=== PATIENT | female | born 1995 | race Caucasian/White ===

== ENCOUNTER 2021-06-08 19:25 | Emergency (ER) | payer OTHER, SELFPAY ==
[2021-06-08 19:39] VITALS: BP 108/64; PULSE 65; RESP 18; TEMP 37.5; O2SAT 94
== END 2021-06-09 02:31 | disposition left against medical advice (07) ==
LOC: ANHED 22:10
DX: Z53.21 Procedure and treatment not carried out due to patient leaving prior to being seen by health care provider (principal)
CPT/HCPCS: 99199

== ENCOUNTER 2023-05-19 10:49 | Emergency (ER) | payer OTHER, MEDICAID, SELFPAY ==
--- NOTE | ~2023-05-19 | US_ITS ---
EXAMINATION: US OB <=14 wk fetus w TV DATE: 05/19/2023 14:51 INDICATION: Vaginal bleeding during first trimester TECHNIQUE: Real-time pelvic ultrasound utilizing both a transvaginal and transabdominal probe was pe rformed. The interpreting radiologist was not present for the study. COMPARISON: None. FINDINGS: The uterus measures 9.2 x 4.4 x 5.4 cm. There is an intrauterine gestational sac. A yolk sac is iden tified. There is asymmetric thickening of the wall of one side of the sac which likely represents a d eveloping pole which is too small to delineate the margins for measurement. No discernible feta l heart motion was noted by the watershed tender or evident on the cine images. The mean sac diameter lenora ures 7-8 cm, which correlates with an estimated gestational age of 5 weeks and 3 days. The right ovary measures 3.5 x 2.1 x 1.8 cm. The left ovary measures 4.3 x 2.2 x 1.9 cm. There are a few subcentimeter follicles evident at both ovaries along with normal vascular flow on color Doppler. There is no free fluid in the pelvis. IMPRESSION: 1. Single intrauterine gestational sac with yolk sac and likely tiny developing pole which perez ins too small for accurate measurement and with no discernible heart motion likely due to early stage of . Consider short interval follow-up in a week or two to assess for viability and m ore accurate estimated gestational age based on crown-rump length. 2. Gestational age by ultrasound based on mean sac diameter of 5 weeks 3 day(s) +/- 3 day(s) with ul trasound estimated date of delivery ([facility]) of 01/16/2024. Reviewed, dictated and finalized at location A. CURER IMPRESSION: 1. Single intrauterine gestational sac with yolk sac and likely tiny developing pole which remains too small for accurate measurement and with no discer nible heart motion likely due to early stage of . Consider short interval follow-up in a week or two to assess for viability and more accurate estimated gestational age based on crown-rump length. 2. Gestational age by ultrasound based on mean sac diameter of 5 weeks 3 day(s ) +/- 3 day(s) with ultrasound estimated date of delivery ([facility]DE[facility]) of 01/16/2024.
[2023-05-19 11:00] VITALS: BP 103/42; PULSE 87; RESP 16; TEMP 36.6; O2SAT 100
[2023-05-19 11:44] LABS: Basophils Absolute Auto 0.1 K/mm3 (0.0-0.1); Basophils Percent Auto 0.8 % (0.2-1.2); Eosinophils Absolute Auto 0.6 K/mm3 (0-0.3); Eosinophils Percent Auto 5.4 % (0-4.4); Hematocrit 38.9 % (37.0-47.0); Hemoglobin 12.6 g/dL (12.0-15.0); Immature Granulocyte Absolute 0.05 K/mm3 (0.00-0.031); Immature Granulocyte Percent A 0.4 % (0-0.5); Lymphocytes Absolute Auto 3.05 K/mm3 (0.9-3.2); Lymphocytes Percent Auto 25.9 % (18.3-44.2); Mean Corpuscular HGB Conc 32.4 g/dl (32-36); Mean Corpuscular Hemoglobin 31.2 pg (26-34); Mean Corpuscular Volume 96.3 fl (80-100); Mean Platelet Volume 9.9 fl (7.4-10.4); Monocytes Absolute Auto 0.7 K/mm3 (0.1-0.6); Monocytes Percent Auto 6.1 % (2.6-8.5); Neutrophils Absolute Auto 7.2 K/mm3 (1.3-6.7); Neutrophils Percent Auto 61.4 % (45.5-73.1); Platelet Count Result 236 k/mm3 (150-375); Red Blood Count 4.04 M/mm3 (4.2-5.4); Red Cell Distribution Width 11.3 % (11.5-14.5); White Blood Count 11.8 K/mm3 (4.5-10.0)
[2023-05-19 11:47] LABS: Appearance Urine Cloudy (Clear); Bacteria Urine 2+ /hpf; Bilirubin Urine Negative (Negative); Blood Urine 3+ (Negative); Color Urine Dark Yellow (Yellow); Glucose Urine UA Negative (Negative); Ketones Urine Trace mg/dL (Negative); Leukocyte Esterase Ur 1+ LEU/UL (Negative); Nitrate Urine Negative (Negative); Non Pathogenic Casts 0-2; Protein Urine 1+ mg/dL (Negative); Specific Grav Ur 1.035 (1.001-1.035); Squamous Epithelial Cell Urine Few /hpf (Few); pH Urine 5.5 (5.0-9.0)
[2023-05-19 11:52] LABS: Alanine Aminotransferase 13 U/L (6-35); Albumin Level 4.7 g/dL (3.5-5.1); Alkaline Phosphatase 42 U/L (38-126); Anion Gap 11 mmol/L (8-16); Aspartate Amino Transferase 24 U/L (14-36); Bilirubin,Total 0.6 mg/dL (0.2-1.3); Blood Urea Nitrogen 10 mg/dL (7-17); Calcium 9.3 mg/dL (8.4-10.2); Carbon Dioxide 25 mmol/L (22-30); Chloride 105 mmol/L (98-107); Estimated CRCL calculation 90 ml/min; Estimated Glomerular Filt Rate > 60; Glucose 87 mg/dL (65-110); Lipase 61 U/L (23-300); Potassium 3.2 mmol/L (3.4-5.0); Sodium 141 mmol/L (137-145)
[2023-05-19 11:57] LABS: Add Urine Microscopic? YES
--- NOTE | 2023-05-19 15:31 | ED.GENADULT ---
HPI - General Adult General Chief complaint: Abdominal Pain Stated complaint: +PREG TEST PAIN AND SPOTTING Time Seen by Provider: 05/19/23 11:22 History of Present Illness HPI narrative: Patient is a 27-year-old female who presents ER with vaginal spotting. Ongoing over the last 2 to 3 days. She has had a positive test that time. Last known menstrual period was in December 2022. She reports she had a negative test 1 month ago. No fevers or chills or sweats. No abdominal pain. She is scheduled to follow-up with Dr. Del Toro later this week. Related Data Allergies Allergy/AdvReac Type Severity Reaction Status Date / Time No Known Allergies Allergy Mild Unverified 06/08/21 19:42 Review of Systems Review of Systems: All systems reviewed & are unremarkable except as noted in HPI and below Constitutional: Constitutional: Denies chills, Denies fatigue and Denies fever(s) ENT: Denies nasal congestion and Denies sore throat Cardiovascular: Cardiovascular: Reports no additional cardiovascular complaints Respiratory: Respiratory: Reports no additional respiratory complaints Genitourinary: Genitourinary: Reports abnormal vaginal bleeding, Denies nocturia, Denies dysuria and Denies pelvic pain PMFSH Past Medical History Medical History (Updated 05/19/23 @ 15:37 by Henok Powell MD) Healthy female adult Surgical History Surgical History (Updated 05/19/23 @ 15:32 by Henok Powell MD) No history of previous surgery Exam Narrative: GENERAL: Well-appearing, well-nourished, and in no acute distress. HEAD: Normocephalic, atraumatic. ENT: Mucous membranes moist. NECK: Supple. CHEST: Clear to auscultation. No respiratory distress. HEART: Regular rate and rhythm. Normal peripheral pulses. ABDOMEN: Soft, nontender, nondistended. EXTREMITIES: Normal range of motion. No edema. SKIN: Warm, dry, no rash. NEURO: Alert and oriented x3. PSYCH: Normal mood and affect. Course Course Emergency Course: Patient resting comfortably. Informed of results. May follow-up with her OB as previously scheduled. Bleeding precautions given. Vital Signs Vital signs: Vital Signs Temperature 97.8 F 05/19/23 11:00 Pulse Rate 87 05/19/23 11:00 Respiratory Rate 16 05/19/23 11:00 Blood Pressure 103/42 L 05/19/23 11:00 Pulse Oximetry 100 05/19/23 11:00 Oxygen Delivery Room Air 05/19/23 11:00 Temperature 97.8 F 05/19/23 11:00 Pulse Rate 87 05/19/23 11:00 Respiratory Rate 16 05/19/23 11:00 Blood Pressure 103/42 L 05/19/23 11:00 Pulse Oximetry 100 05/19/23 11:00 Oxygen Delivery Room Air 05/19/23 11:00 Medical Decision Making Vital Signs Vital Signs: Vital Signs Temperature 97.8 F 05/19/23 11:00 Pulse Rate 87 05/19/23 11:00 Respiratory Rate 16 05/19/23 11:00 Blood Pressure 103/42 L 05/19/23 11:00 Pulse Oximetry 100 05/19/23 11:00 Oxygen Delivery Room Air 05/19/23 11:00 Temperature 97.8 F 05/19/23 11:00 Pulse Rate 87 05/19/23 11:00 Respiratory Rate 16 05/19/23 11:00 Blood Pressure 103/42 L 05/19/23 11:00 Pulse Oximetry 100 05/19/23 11:00 Oxygen Delivery Room Air 05/19/23 11:00 Lab Data 05/19/23 11:33 05/19/23 11:33 Labs: Lab Results 05/19/23 05/19/23 Range/Units 11:33 12:08 WBC 11.8 H (4.5-10.0) K/mm3 RBC 4.04 L (4.2-5.4) M/mm3 Hgb 12.6 (12.0-15.0) g/dL Hct 38.9 (37.0-47.0) % MCV 96.3 (80-100) fl MCH 31.2 (26-34) pg MCHC 32.4 (32-36) g/dl RDW 11.3 L (11.5-14.5) % Plt Count 236 (150-375) k/mm3 MPV 9.9 (7.4-10.4) fl Immature Gran % (Auto) 0.4 (0-0.5) % Neut % (Auto) 61.4 (45.5-73.1) % Lymph % (Auto) 25.9 (18.3-44.2) % [place] % (Auto) 6.1 (2.6-8.5) % Eos % (Auto) 5.4 H (0-4.4) % Baso % (Auto) 0.8 (0.2-1.2) % Lymph # (Auto) 3.05 (0.9-3.2) K/mm3 [place] # (Auto) 0.7 H (0.1-0.6) K/mm3 Eos # (Auto) 0.6 H
[2023-05-19 15:46] VITALS: BP 101/85; PULSE 76; RESP 18; O2SAT 100
== END 2023-05-19 15:47 | disposition home or self-care (01) ==
PROVIDERS: Emergency Provider Emergency Medicine; PCP Nurse Practitioner Family
DX: O26.851 Spotting complicating pregnancy, first trimester (principal); O26.891 Other specified pregnancy related conditions, first trimester; R82.71 Bacteriuria; Z3A.01 Less than 8 weeks gestation of pregnancy
CPT/HCPCS: 36415; 76801; 76817; 80053; 81001; 81025; 83690; 84702; 85025; 86850; 86900; 86901; 87086; 99284

== ENCOUNTER 2023-05-22 08:38 | Emergency (ER) | payer OTHER, MEDICAID, SELFPAY ==
--- NOTE | ~2023-05-22 | US_ITS ---
EXAMINATION: US OB <= 14 weeks fetus DATE: 05/22/2023 10:04 INDICATION: Vaginal bleeding. TECHNIQUE: Real-time transabdominal and transvaginal pelvic ultrasound was performed. COMPARISON: Ultrasound 05/19/2023 FINDINGS: TRANSABDOMINAL ULTRASOUND: The uterus measures 9.4 x 4.5 x 5.4 cm. TRANSVAGINAL ULTRASOUND: There is no visible intrauterine gestational sac. The endometrial complex me asures 5 mm in thickness. The right ovary measures 2.6 x 1.9 x 2.0 cm. The left ovary measures 2.3 x 2.3 x 2.1 cm. There is physiologic free fluid in the pelvis. IMPRESSION: 1. Spontaneous . No retained products of conception. Reviewed, dictated and finalized at location A. [place] SURGERY DOCTOR
[2023-05-22 08:41] VITALS: BP 107/54; PULSE 72; RESP 18; TEMP 36.4; O2SAT 99
--- NOTE | 2023-05-22 08:46 | ED.PREGNANCY ---
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 She notes she was seen here recently for vaginal bleeding and cramping. She had an ultrasound at that time, was also started on antibiotics for bacturia/UTI. She continues to be on these antibiotics. She states that overnight last night she had worsening cramping that felt similar to prior contractions with her first child. The pain is located throughout her lower abdomen as well as in her lower back. She notes that the bleeding and cramping seem to have significantly decreased since that time. No prior miscarriages. No shortness of breath, light headedness. No vaginal discharge aside from the bleeding. Related Data Allergies Allergy/AdvReac Type Severity Reaction Status Date / Time No Known Allergies Allergy Mild Verified 05/22/23 08:38 Review of Systems Review of Systems: All systems reviewed & are unremarkable except as noted in HPI and below PMFSH Past Medical History Medical History (Updated 05/22/23 @ 11:11 by Caty Montoya MD) Healthy female adult Surgical History Surgical History (Updated 05/19/23 @ 15:32 by Henok Powell MD) No history of previous surgery Exam Narrative: GENERAL: Well-appearing, well-nourished, and in no acute distress. HEAD: Normocephalic, atraumatic. EYES: PERRLA and EOMI. ENT: Nares clear. Mucous membranes moist. NECK: Supple. CHEST: Clear to auscultation. No respiratory distress. HEART: Regular rate and rhythm. Normal peripheral pulses. ABDOMEN: Soft, nontender, nondistended. 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 No edema. SKIN: Warm, dry, no rash. NEURO: No focal deficits. Alert and oriented x3. PSYCH: Normal mood and affect. Course Course Emergency Course: Chart review performed. ED visit here on 05/19/23. They note she was scheduled for follow up with Dr. Del Toro. US at that visit showed single intrauterine gestational sac with yolk sac, estimated gestational age 5w3d. Blood type O positive. Triage note states patient was concerned for miscarriage and believes she may have passed tissue last night. Patient seen and evaluated, in no acute distress. Concerns for possible miscarriage. Will do ultrasound to evaluate for possible retained products as well as pelvic exam to evaluate cervical OS. Tylenol ordered for pain. Patient O positive, will not require rhogam. bHCG has downtrended from 1678 on 05/19/23 to 268 today. Awaiting US. US shows complete without retained products. Patient updated on results. Will defer the pelvic exam at this time given no concern for retained products at this time and improved bleeding. The results of pertinent diagnostic studies and exam findings were discussed. The patient?s provisional diagnosis and plan of care were discussed with the patient and present family. The patient and/or present family expressed understanding of the diagnosis and plan. The nurse was instructed to provide written instructions and appropriate follow-up information. The patient understands their need and responsibility to obtain additional follow-up as instructed. The risks of medications administered and prescribed were discussed with the patient and family present. Vital Signs Vital signs: Vital Signs Temperature 97.6 F 05/22/23 08:41 Pulse Rate 72 05/22/23 08:41 Respiratory Rate 18 05/22/23 08:41 Blood Pressure 107/54 L 05/22/23 08:41 Pulse Oximetry 99 05/22/23 08:41 Oxygen Delivery Room Air 05/22/23 08:41 Temperature 97.6 F 05/22/23 08:41 Pulse Rate 72 05/22/23 08:41 Respiratory Rate 18 05/22/23 08:41 Blood Pressure 107/54 L 05/22/23 08:41 Pulse Oximetry 99 05/22/23 08:41 Oxygen Deli
[2023-05-22] MEDS: ACETAMINOPHEN 500 MG TABLET 1000 MG PO (09:03)
[2023-05-22 11:20] VITALS: BP 106/55; PULSE 72; RESP 16; O2SAT 99
== END 2023-05-22 11:21 | disposition home or self-care (01) ==
PROVIDERS: Emergency Provider Student in an Organized Health Care Education/Training Program; PCP Nurse Practitioner Family
DX: O03.9 Complete or unspecified spontaneous abortion without complication (principal)
CPT/HCPCS: 36415; 76801; 84702; 99284; A9270

== ENCOUNTER 2024-02-26 12:56 | Day surgery (SDC) | payer OTHER, SELFPAY ==
[2024-02-26] VITALS (9 sets, daily range): BP systolic 92–116; BP diastolic 55–77; PULSE 73–103; RESP 16–18; TEMP 36.2–36.3; O2SAT 95–100; BMI 26.6; BMI 26.2
--- NOTE | 2024-02-26 12:11 | PC.NURSE ---
Report to the Outpatient Waiting Room, entrance under the green pavilion located off [facility], at time _1pm_ on date _[id number]_. Planned Procedure Time: _3pm_.? Time changes happen often and if your time is changed the preop area will call you the afternoon before. - You and your visitor will be asked to self-screen and do not enter if you have any COVID symptoms. Please call surgeon if you need to reschedule. - A mask is optional within the hospital at this time. Patients may have clear liquids (water, carbonated beverages, clear teas, apple juice) until 3 hours prior to surgery with a maximum of 20 ounces. - No food from midnight until time of surgery and no smoking Take only the following medications with a SIP of water on the morning of surgery: ___Already took Vraylar and Sertraline this am. DO NOT STOP ANY OF YOUR OTHER PRESCRIPTION MEDICATIONS PRIOR TO SURGERY EXCEPT THE FOLLOWING Medications to discontinue per physician Date to take last dose Please no make-up, nail romansh, hairspray, perfume, deodorant, or body powder the day of surgery.? No jewelry (including any body piercings) or valuables the day of surgery, leave them at home.? Please take a shower or bath the night before, or the morning of, surgery with an antibacterial soap.? Wear comfortable, loose fitting clothing.? - Jewelry must be removed prior to entering the operating room.? Rings and piercings that are not removed may be cut off. - The hospital will not accept responsibility for valuables.? - Please leave all valuables, including medications, at home the day of surgery. If you are going home after surgery, a licensed fuel truck driver must drive you home.? - NO public transportation without another adult if you receive anesthesia. - We recommend that an adult stay with you for 24 hours following discharge. - We also recommend that you do not drive, make important decision, drink alcoholic beverages, or take any drugs that were not prescribed by your health care provider for at least 24 hours after your discharge time. Follow any additional instructions given to you from your surgeon. Telephone instructions given to __Chelenardn__and asked if any additional questions and then verbalized understanding. Patient advised to call surgeon office or pre surgery nurse liaison [phone] if any additional questions.
[2024-02-26] MEDS: ACETAMINOPHEN 500 MG TABLET 1000 MG PO (13:48)
[2024-02-26] MEDS: KETOROLAC 15 MG/ML VIAL (*BKC) IV PUSH (13:48)
--- NOTE | 2024-02-26 13:49 | P.PNAN_ITS ---
Anes - Initial Pre Proc Eval Procedure: Operation Date: 02/26/24 15:00 Proposed Procedures p Diagnostic Laparoscopy for Ectopic - Sonny Marquez MD Date/Time: 02/26/24 13:49 Surgeon: Sonny Marquez MD Pre Op Diagnosis: Ectopic Patient Data Age: 28 Gender: F Height: 1.55 m Weight: 62.9 kg Last Vital Signs Temp 97.2 F L 02/26/24 13:36 Pulse 83 02/26/24 13:36 Resp 16 02/26/24 13:36 BP 102/61 02/26/24 13:36 Pulse Ox 99 02/26/24 13:36 O2 Del Method Room Air 02/26/24 13:36 Allergies Allergy/AdvReac Type Severity Reaction Status Date / Time No Known Allergies Allergy Mild Verified 02/26/24 12:01 Home Medications Medication Instructions Recorded Confirmed Type cariprazine 1.5 mg capsule 1.5 mg PO DAILY 02/26/24 02/26/24 History (Vraylar) sertraline 50 mg tablet 50 mg PO DAILY 02/26/24 02/26/24 History Patient hx anesthesia problems: post op nausea/vomiting Family hx anesthesia problems: none Results Review: All pre-operative results and documents have been reviewed as part of the pre- operative evaluation. FOR[facility]LY [facility] Past Medical History Medical History Healthy female adult Surgical History Surgical History No history of previous surgery Social History Social History Smoking status: Former smoker Tobacco type: e-cigarettes/vaping Alcohol intake: current Substance use: current Substance use type: marijuana Other substance usage details: daily Living arrangements: alone Spiritual care concerns: No Anes - Eval Final PreProcedure Day of Procedure 02/26/24 13:49 Patient weight: normal Heart: regular rate and rhythm Lungs: clear to auscultation Airway: Mallampati scale class II and special considerations (Missing upper teeth R sided and lower R side. ) Neurological: alert and oriented Last oral intake: >/= 8 hours ASA classification: II Emergent: no Anesthetic plan: proceed Anesthesia type and monitoring: general ETT and standard monitoring Results Review: All pre-operative results and documents have been reviewed as part of the pre- operative evaluation. Pt smokes marijuana daily, smoked at 8 am today. Prev vaped cigarettes. Informed Consent: The patient's anesthetic plan and its attendant risks and benefits were discussed with the patient/family/POA. Questions were solicited and answers provided to the satisfaction of the patient/family/POA.
[2024-02-26] MEDS: SCOPOLAMINE 1 MG PATCH 1 PATCH TRANSDERM (13:57)
--- NOTE | 2024-02-26 14:16 | WPDHPUPDATE1 ---
History and Physical Update Update Date/Time: 02/26/24 14:16 History and Physical has been reviewed, including an updated exam of the patient. There are NO changes in the patient's condition. Risks, benefits, and alternatives have been discussed and questions answered. Patient agrees to proceed with procedure.
[2024-02-26] MEDS: LACTATED RINGERS 1,000 ML 30 ML IV CONT ×2 (15:23)
--- NOTE | 2024-02-26 15:23 | W.PM.PROC2 ---
Procedure Note - Detailed Date of Procedure 02/26/24 Pre-op Diagnosis Ectopic Post-op Diagnosis Same (Hemoperitoneum) Procedure Performed laparoscopic treatment of ectopic , Surgeon Sonny Marquez MD Anesthesia General Indications ectopic Findings pelvic adhesions involving both tubes and ovaries, found throughout the posterior cul-de-sac, Adhesions formed pockets that held blood, ruptured ectopic in the ampullary region of the left fallopian tube. Description of Procedure The patient was taken to the operating room. She was prepped and draped in the dorsal lithotomy position after induction general anesthesia. A 5 mm incision was made with a scalpel on the abdominal skin in the left upper quadrant of the abdomen. A 5 mm trocar was inserted into the intra-abdominal cavity under direct visualization the scope. In the same fashion a 11 mm left lower quadrant trocar was inserted and a 11 mm infraumbilical trocar was inserted. proximal fallopian tube was grasped and cauterized transected with LigaSure cautery and a corneal area. The mesosalpinx was then cauterized and transected distally to the area of the ovary. This was done LigaSure cautery in a stepwise fashion. The fallopian tube was amputated placed in endobag and taken out the left lower quadrant trocar site. The pelvis was irrigated thoroughly. Some adhesions were taken down to allow fluid to move freely through the posterior cul-de-sac. There were areas of adhesions were fluids was becoming trap. Blood had become trapped behind the adhesions. The pelvis was irrigated. The pneumoperitoneum was reduced. The trocars were removed. Skin was closed with subcuticular 4 micro. The patient's incisions were covered with Dermabond. She was taken recovery room in stable condition. Sponge lap and needle counts were correct x2. Estimated Blood Loss 15 Complications No immediate complications Condition Stable Disposition Same day
[2024-02-26] MEDS: fentaNYL CITRATE INJ (*CRX) 100 MCG/2 ML VIAL 25 MCG IV PUSH ×6 (15:44→16:16)
[2024-02-26] MEDS: oxyCODONE HCL (*CRX) 5 MG TAB IR PO (16:57)
== END 2024-02-26 17:40 | disposition home or self-care (01) ==
PROVIDERS: PCP Physician Assistant; Visit Provider Obstetrics & Gynecology
PROC: (CPT 49320; principal; 2024-02-26 15:00)
DX: O00.90 Unspecified ectopic pregnancy without intrauterine pregnancy (principal); F43.10 Post-traumatic stress disorder, unspecified; F41.9 Anxiety disorder, unspecified; F32.A Depression, unspecified; F12.90 Cannabis use, unspecified, uncomplicated; G89.18 Other acute postprocedural pain; Z87.891 Personal history of nicotine dependence; Z84.0 Family history of diseases of the skin and subcutaneous tissue
CPT/HCPCS: 59150; 88305; A9270; J0330; J1100; J1885; J2250; J2371; J2405; J2704; J3010; J7030; J7120

== ENCOUNTER 2024-04-29 16:31 | Emergency (ER) | payer OTHER, SELFPAY ==
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
[2024-04-29 16:35] VITALS: BP 96/63; PULSE 91; RESP 18; TEMP 36.5; O2SAT 100
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
[2024-04-29] MEDS: HYDROcodone/acetaminophen (*CRX) 5-325 MG TABLET 1 TAB PO (18:15)
[2024-04-29 18:32] LABS: Basophils Absolute Auto 0.1 K/mm3 (0.0-0.1); Basophils Percent Auto 0.7 % (0.2-1.2); Eosinophils Absolute Auto 0.3 K/mm3 (0-0.3); Eosinophils Percent Auto 1.8 % (0-4.4); Hemoglobin 14.2 g/dL (12.0-15.0); Immature Granulocyte Absolute 0.06 K/mm3 (0.00-0.031); Immature Granulocyte Percent A 0.4 % (0-0.5); Lymphocytes Absolute Auto 2.42 K/mm3 (0.9-3.2); Lymphocytes Percent Auto 14.3 % (18.3-44.2); Mean Corpuscular HGB Conc 34.6 g/dl (32-36); Mean Corpuscular Hemoglobin 32.5 pg (26-34); Mean Corpuscular Volume 93.8 fl (80-100); Monocytes Absolute Auto 1.2 K/mm3 (0.1-0.6); Monocytes Percent Auto 6.9 % (2.6-8.5); Neutrophils Absolute Auto 12.8 K/mm3 (1.3-6.7); Neutrophils Percent Auto 75.9 % (45.5-73.1); Platelet Count Result 271 k/mm3 (150-375); Red Blood Count 4.37 M/mm3 (4.2-5.4); Red Cell Distribution Width 10.8 % (11.5-14.5); White Blood Count 16.9 K/mm3 (4.5-10.0)
[2024-04-29 18:43] LABS: Anion Gap 10 mmol/L (4-12); Blood Urea Nitrogen 15 mg/dL (7-17); Calcium 9.9 mg/dL (8.4-10.2); Carbon Dioxide 26 mmol/L (22-30); Chloride 102 mmol/L (98-107); Estimated CRCL calculation 100 ml/min; Estimated Glomerular Filt Rate > 60; Glucose 93 mg/dL (65-110); Potassium 3.8 mmol/L (3.4-5.0); Sodium 138 mmol/L (137-145)
[2024-04-29 18:59] LABS: SPREG INTERNAL CONTROL Positive; Serum Qual hCG Negative
[2024-04-29 19:50] VITALS: BP 100/67; PULSE 91; RESP 14; O2SAT 97
== END 2024-04-29 20:49 | disposition short-term general hospital (02) ==
PROVIDERS: Emergency Provider Physician Assistant; PCP Physician Assistant
DX: S12.590A Other displaced fracture of sixth cervical vertebra, initial encounter for closed fracture (principal); S19.9XXA Unspecified injury of neck, initial encounter; Z87.891 Personal history of nicotine dependence; V43.52XA Car driver injured in collision with other type car in traffic accident, initial encounter
CPT/HCPCS: 36415; 70450; 71260; 72125; 73110; 73130; 73564; 73630; 74177; 80048; 84703; 85025; 99285; A9270; Q9967

== ENCOUNTER 2024-12-24 17:26 | Emergency (ER) | payer OTHER, SELFPAY ==
[2024-12-24 17:41] VITALS: BP 111/85; PULSE 90; RESP 16; TEMP 37.7; O2SAT 99
--- NOTE | 2024-12-24 17:43 | ED.DENTAL ---
HPI - Dental/Oral General Chief complaint: Skin/Abscess/Foreign Body Stated complaint: RASH Time Seen by Provider: 12/24/24 17:40 Source: patient Mode of arrival: ambulatory Limitations: no limitations History of Present Illness HPI Narrative: 29-year-old female presents with concern for red bumps in her mouth and white coating on her tongue. Reports the tongue castanon. She denies any recent antibiotics, she does not use albuterol inhaler. She denies immunocompromise state. Related Data Allergies Allergy/AdvReac Type Severity Reaction Status Date / Time No Known Allergies Allergy Mild Verified 12/24/24 17:36 Review of Systems Review of Systems: CONSTITUTIONAL: Denies malaise, chills, sweats, or fever. EYES: Denies visual changes ENT: Denies rhinorrhea, congestion, sinus pain, otalgia or sore throat. Reports red bumps in her mouth and a white coating on her tongue CARDIOVASCULAR: Denies chest pain, palpitations RESPIRATORY: Denies cough or dyspnea. SKIN: Denies rash or itching. MUSCULOSKELETAL: Denies myalgia. NEUROLOGIC: Denies numbness, weakness, or headache. All systems reviewed & are unremarkable except as noted in HPI and below PMFSH Past Medical History Medical History Healthy female adult Surgical History Surgical History No history of previous surgery Social History Social History Smoking status: Former smoker Tobacco type: e-cigarettes/vaping Alcohol intake: current Substance use: current Substance use type: marijuana Other substance usage details: daily Living arrangements: alone Spiritual care concerns: No Comments At time of signature, agree with nursing past medical, surgical, social and family history. There is no relevant family history pertinent to the presenting complaint Exam Narrative: GENERAL: Well-appearing, well-nourished, and in no acute distress. HEAD: Normocephalic, atraumatic. EYES: PERRLA, sclera clear ENT: Nares clear, no rhinorrhea or epistaxis. Mucous membranes moist. No Missing teeth, broken teeth. Caries noted. White coating noted on the tongue, flat red macules noted on the oral mucosa NECK: Supple. No lymphadenopathy. CHEST: No respiratory distress. Speaks in full sentences. HEART: Regular rate and rhythm. SKIN: Warm, dry, no visible rash. NEURO: Alert and oriented x3. PSYCH: Normal mood and affect Course Course Emergency Course: Patient is aware of diagnosis, understands and agrees to treatment plan. Anticipatory guidance given. Patient agrees to follow-up as directed and is aware of reasons to seek care at the emergency department. Portions of this record may have been created with voice recognition software Level of Care: [facility] Visit Vital Signs Vital signs: Vital Signs Temperature 99.9 F H 12/24/24 17:41 Pulse Rate 90 12/24/24 17:41 Respiratory Rate 16 12/24/24 17:41 Blood Pressure 111/85 12/24/24 17:41 Pulse Oximetry 99 12/24/24 17:41 Oxygen Delivery Room Air 12/24/24 17:41 Temperature 99.9 F H 12/24/24 17:41 Pulse Rate 90 12/24/24 17:41 Respiratory Rate 16 12/24/24 17:41 Blood Pressure 111/85 12/24/24 17:41 Pulse Oximetry 99 12/24/24 17:41 Oxygen Delivery Room Air 12/24/24 17:41 Reviewed. MDM - Dental/Oral MDM Narrative Medical decision making narrative: I evaluated this in the [facility]. History is obtained from patient who is an independent historian and physical exam was performed.? Available medical records were reviewed. ? Exam findings and relevant testing show no acute concerns or changes; patient is non-toxic appearing and is in no distress. Patients pain and complaint coupled with physical findings are consistant with dentalgia. There are no focal signs of space occupying lesions that are compromising to the airway; no dysphagia, odynophagia, dysphonia, or dyspnea. No uvular deviation or soft palate edema. Patient is non-toxic appearing. The floor of the mouth is soft with no signs of Shawn's Angina; no induration below mandible, no neck pain. Patient is without trismus or drooling and able to swallow secretions. Patient is felt appropriate for discharge home with dental follow up. ? Differential diagnosis and treatment plan were discussed with the patient. Patient agrees with discussion and after shared medical decision making agrees with plan of care. All questions were answered to the patient's satisfaction. Patient is appropriate for outpatient treatment and follow-up. Differential Diagnosis Differential diagnosis: Likely gingival abscess, dental caries, toothache, dental abscess, fracture of tooth and aphthous ulcer Critical Care Time Critical Care Time Critical Care Time: No Discharge Plan Discharge Clinical Impression: Thrush, oral Patient Disposition: Home Condition: Stable Instructions: Oral Candidiasis (ED) Additional Instructions: 1) Please follow-up with your primary care doctor in the next 1-2 days. 2) If you have any worsening of symptoms or any other urgent concerns please go to the ER. 3) Please take medications as prescribed and continue taking your home medications as usual. 4) Please read and follow information included in discharge instructions. Patient Language: Macedonian Prescriptions: New nystatin 100,000 unit/mL suspension 5 ml PO QID 7 Days Qty: 140 0RF Rx Instructions: swish and swallow Follow-up/Referrals: Jordon,Amanda Rodriguez, MACARONI MAKER [Primary Care Provider] - Time of Disposition: 17:49
== END 2024-12-24 17:53 | disposition home or self-care (01) ==
PROVIDERS: Emergency Provider Nurse Practitioner
DX: B37.0 Candidal stomatitis (principal); Z87.891 Personal history of nicotine dependence
CPT/HCPCS: 99213; G0463